=== PATIENT | male | born 1965 | race Caucasian/White ===

== ENCOUNTER 2018-11-11 07:37 | Day surgery (SDC) | payer OTHER ==
[2018-11-10 15:12] VITALS: BP 155/90
[2018-11-10 15:23] LABS: BASOPHILS % (AUTO) 0.7 % (0.0-5.0); EOSINOPHILS % (AUTO) 1.6 % (0.0-8.0); HEMATOCRIT 44.9 % (42-54); LYMPHOCYTES % (AUTO) 27.2 % (21.0-51.0); MEAN CORPUSCULAR HGB CONC 34.6 g/dL (32.0-36.0); MEAN CORPUSCULAR VOLUME 86.9 fL (79-99); MONOCYTES % (AUTO) 5.7 % (3.0-13.0); NEUTROPHILS % (AUTO) 64.8 % (40.0-77.0); NUCLEATED RED BLOOD CELLS 0.1 % (0.0-0.19); PLATELET COUNT (AUTO) 266 K/uL (130-400); RED BLOOD CELL COUNT(AUTO) 5.17 MIL/uL (4.50-6.20); RED CELL DISTRIBUTION WIDTH 13.5 % (11.0-15.5); WHITE BLOOD COUNT (AUTO) 9.4 K/uL (4.8-10.8)
[2018-11-10 15:39] LABS: INR 0.94 (0.85-1.15); PROTHROMBIN TIME 9.9 SEC (9.6-11.6)
[2018-11-10 15:42] LABS: CREATININE 1.1 mg/dL (0.5-1.5); POTASSIUM 4.4 mmol/L (3.5-5.1)
[2018-11-10] MEDS: CEFAZOLIN SODIUM 1 GM VIAL IVP SCH (16:00)
[~2018-11-11] VITALS: Ht 174 cm; Wt 96.1 kg
[2018-11-11] VITALS (17 sets, daily range): BP systolic 123–166; BP diastolic 81–103
[~2018-11-11 07:37] MED LIST: ALBU8.5H8 IH; BUDE10.2 IH; DICY20TA11 PO; LURA20TA PO; OMEP40CA37 PO; OXCA300T28 PO; PRAV10TA39 PO; SERT50TA12 PO; SUCR1TAB2 PO; TRAZ300T2 PO
--- NOTE | 2018-11-11 08:25 | NUR ---
PAIN denies pain at rest ,pain rates a 4 when ambulating in left anterior knee Addendum: 11/11/18 at 0930 by AVRIL VELASQUEZ RN RN Amended: Links added.
[2018-11-11] MEDS ORDERED: LACTATED RINGERS 1000ML 1,000 ML IV ONE (08:26)
[2018-11-11] MEDS ORDERED: PROPOFOL 10 MG/ML 20ML VIAL IV ONE ×2 (09:24→11:49)
[2018-11-11] MEDS ORDERED: MIDAZOLAM HCL 1 MG/ML 2ML VIAL ONE ×2 (09:24→11:45)
[2018-11-11] MEDS ORDERED: LIDOCAINE PF 2% 5ML ABBOJECT ONE (09:24)
[2018-11-11] MEDS ORDERED: ROCURONIUM 10MG/1ML SYR 10 MG/ML ML ONE ×2 (09:25→10:42)
[2018-11-11] MEDS ORDERED: FENTANYL CITRATE PF 50 MCG/1 ML 2ML VIAL ONE (09:25)
[2018-11-11] MEDS ORDERED: SUCCINYLCHOLINE 200MG/10ML SYR ONE (09:28)
[2018-11-11] MEDS ORDERED: SUB TO ALBUTEROL 2.5MG/3ML NEBULES PER P&T IH ONE (09:37)
[2018-11-11] MEDS ORDERED: MEPERIDINE-PF 50 MG/ML SYG ONE (09:44)
[2018-11-11] MEDS ORDERED: LIDOCAINE HCL 4% LTA SOL 4 ML VIAL ONE (09:49)
[2018-11-11] MEDS: CEFAZOLIN SODIUM 1 GM VIAL IVP SCH (10:16)
[2018-11-11] MEDS ORDERED: EPHEDRINE SULFATE 50 MG/ML AMPULE ONE (10:27)
[2018-11-11] MEDS ORDERED: DEXAMETHASONE SOD PHOSPHATE 4 MG/ML 1ML VIAL ONE (10:29)
[2018-11-11] MEDS ORDERED: GLYCOPYRROLATE 1 MG/5 ML SYRINGE ONE ×3 (10:29→11:36)
[2018-11-11] MEDS ORDERED: NEOSTIGMINE 5MG/5ML SYR IV ONE ×3 (10:29→11:36)
[2018-11-11] MEDS ORDERED: ONDANSETRON HCL 4 MG/2 ML VIAL ONE (10:29)
[2018-11-11] MEDS ORDERED: NAPR-1192 PO (11:45)
[2018-11-11] MEDS ORDERED: CEPH500B PO (11:45)
[2018-11-11] MEDS ORDERED: TYL3 PO (11:45)
--- NOTE | 2018-11-11 13:00 | NUR ---
POST OP RECEIVED PT FROM PACU, PT AWAKE AND ALERT , S/P LEFT KNEE ARTHROSCOPY, NEUROVASCULAR CHECKS WNL. PT DENIES ANY PAIN OR DISCOMFORTS. PLAN OF CARE DISCUSS WITH PATIENT /
--- NOTE | 2018-11-11 13:30 | NUR ---
dc dc instructions given to pt spouse with rx x 3, instructed to f/u with agustín. instructed on crutches used. pt / spouse verbalized understanding.
--- NOTE | 2018-11-11 13:40 | NUR ---
dc pt dc home via wc , no distress noted. denies any pain or discomforts.left knee dressing dry and intact, neurovascular checks wnl. accompanied by spouse, crutches provided to patient
== END 2018-11-11 13:40 | disposition home or self-care (01) ==
LOC: DAH 07:37
PROVIDERS: ATTEND Orthopaedic Surgery
DX: M23.222 Derangement of posterior horn of medial meniscus due to old tear or injury, left knee (principal); M22.42 Chondromalacia patellae, left knee; M25.562 Pain in left knee; J44.9 Chronic obstructive pulmonary disease, unspecified; Z79.899 Other long term (current) drug therapy; Z90.49 Acquired absence of other specified parts of digestive tract; Z98.890 Other specified postprocedural states; Z72.89 Other problems related to lifestyle; Z87.891 Personal history of nicotine dependence; Z83.3 Family history of diabetes mellitus; Z82.49 Family history of ischemic heart disease and other diseases of the circulatory system
CPT/HCPCS: 29881; 36415; 80048; 85025; 85610; 94002; A4606; A4649 ×2; A4930; A6223; J0330; J0690; J1100; J2001; J2175; J2250 ×2; J2405; J2704 ×2; J2710 ×3; J3010; J3490 ×4; J7120

== ENCOUNTER → 2019-05-15 | Outpatient (CLI) | payer OTHER ==
[~2019-05-15] MED LIST changes: +CEPH500B PO; +NAPR-1192 PO; +OMEP40CA13 PO; -OMEP40CA37 PO; +TYL3 PO
== END | disposition home or self-care (01) ==
LOC: RAH 10:47
PROVIDERS: ATTEND Orthopaedic Surgery
DX: M23.91 Unspecified internal derangement of right knee (principal)
CPT/HCPCS: 73721

== ENCOUNTER → 2024-12-12 | Outpatient (CLI) | payer OTHER ==
[~2024-12-12] MED LIST changes: -DICY20TA11 PO; +DICY20TA3 PO; -OMEP40CA13 PO; +OMEP40CA21 PO; +PRAV10TA37 PO; -PRAV10TA39 PO; +REGADENOSON 0.4 MG/5 ML PF SYG IVP ONE; +SERT-439 PO; -SERT50TA12 PO
--- NOTE | 2024-12-12 16:31 | HMCSR ---
APPROVED REPORT Height: 5 ft 8in Weight: 149 lbs TEST INDICATIONS Chest Pain The imaging protocol used to acquire images was Rest Tc-99m/stress Tc-99m 1 day Consent: The procedure was explained and understood by the patient. Informerd consent was witnessed Luis Zaidi RN First, low dose rest was performed then high dose stress. RESTING DATA: The resting ekg shows: NS, old inferior DE, early repolarization Rest SPECT myocardial perfusion imaging was performed in supine position minutes following the intra venous injection of 11 mCi of Tc-99 Sestamibi. Time of rest injection: Date: 12/12/2024 Time of rest imaging: Date: 12/12/2024 PHARMACOLOGIC STRESS: Pharmacologic stress test was performed by injecting regadenoson 0.4 mg IV push followed by the intra venous injection of 30 mCi of Tc-99 Sestamibi. Time of stress injection: Date: 12/12/2024 Time of stress imaging: Date: 12/12/2024 Heart Rate at time of stress injection: 80 bpm. The images were gated to evaluate regional wall motion and calculate left ventricular ejection fracti on. STRESS DETAILS Reason for Termination: Infusion complete Stress Symptoms: Coughing Max HR Achieved: 103 bpm % of APMHR Achieved: 74 Max Blood Pressure: 124/82 mmHg Stress ECG: NSR Conclusion No ischemia Fixed septal defect LV ejection fraction 71% Normal LV size at rest and stress, TID 0.9 Normal LV wall motion No increased lung uptake
== END | disposition home or self-care (01) ==
LOC: RAH 10:19
PROVIDERS: ATTEND Internal Medicine Cardiovascular Disease
DX: R07.9 Chest pain, unspecified (principal)
CPT/HCPCS: 78452; 93017; J2785; A9500 ×2